=== PATIENT | male | born 1985 | race Two or more races ===

== ENCOUNTER 2025-05-19 21:10 | Emergency (ER) | payer OTHER ==
[~2025-05-19] VITALS: Ht 182.9 cm; Wt 63.5 kg
[2025-05-19] MEDS ORDERED: DIPHTH,PERTUSS(ACELL),TET VAC 0.5 ML SYRINGE IM ONE (21:32)
[2025-05-19] MEDS ORDERED: TETANUS & DIPHTHERIA TOX,ADULT 0.5 ML VIAL IM STA (21:34)
== END 2025-05-19 22:43 | disposition home or self-care (01) ==
LOC: ER 21:28
DX: S91.311A Laceration without foreign body, right foot, initial encounter (principal); W45.8XXA Other foreign body or object entering through skin, initial encounter; Y93.02 Activity, running; Y92.89 Other specified places as the place of occurrence of the external cause; Y99.9 Unspecified external cause status